=== PATIENT | female | born 1970 | race Native Hawaiian/Other Pacific Islander ===

== ENCOUNTER 2017-01-04 08:54 | Emergency (ER) | payer OTHER ==
[~2017-01-04] VITALS: Ht 170.2 cm; Wt 81.6 kg
== END 2017-01-04 09:24 | disposition home or self-care (01) ==
LOC: ED 08:54
DX: H60.90 Unspecified otitis externa, unspecified ear (principal)
CPT/HCPCS: 99281

== ENCOUNTER 2018-12-21 21:58 | Emergency (ER) | payer OTHER ==
[~2018-12-21] VITALS: Ht 165.1 cm; Wt 86.2 kg
[2018-12-21 22:49] VITALS: BP 124/69; TEMP 98.6
== END 2018-12-21 22:49 | disposition home or self-care (01) ==
LOC: ED 21:58
DX: K08.89 Other specified disorders of teeth and supporting structures (principal); F17.210 Nicotine dependence, cigarettes, uncomplicated
CPT/HCPCS: 96372; 99283; J0696; J1885

== ENCOUNTER 2020-10-22 14:21 | Emergency (ER) | payer BC ==
[~2020-10-22] VITALS: Ht 170.2 cm; Wt 92.5 kg
[2020-10-22 14:21] VITALS: TEMP 97.9
[2020-10-22 14:41] LABS: PLATELET COUNT 331 K/uL (152-353)
[2020-10-22 14:50] LABS: POTASSIUM 2.9 mmol/L (3.6-5.2); SODIUM 136 mmol/L (136-145)
[2020-10-22 17:05] VITALS: BP 124/73
== END 2020-10-22 17:05 | disposition home or self-care (01) ==
LOC: ED 14:21
PROVIDERS: Emergency Medicine
DX: E87.6 Hypokalemia (principal); R07.89 Other chest pain; R06.09 Other forms of dyspnea; R06.4 Hyperventilation
CPT/HCPCS: 36415; 80053; 82550; 83880; 84484; 85027; 85379; 93005; 96365; 99284

== ENCOUNTER 2021-05-31 10:50 | Emergency (ER) | payer BC | END 2021-05-31 11:07 | disposition home or self-care (01) | LOC: ED 10:50 | DX: B34.9 Viral infection, unspecified (principal); Z20.822 Contact with and (suspected) exposure to COVID-19 | CPT/HCPCS: 87502; 87635; 99283; U0003 ==